=== PATIENT | female | born 1965 | race Caucasian/White ===

== ENCOUNTER → 2018-09-24 | Outpatient (CLI) | payer OTHER ==
--- NOTE | 2018-09-24 15:41 | Diagnostic Imaging Report ---
Indication: Palpable lump in the left breast. No prior mammograms are available for comparison. 2-D and 3-D bilateral diagnostic mammography was performed. BB marker was placed at the area of palpable abnormality in the upper aspect of the left breast retroareolar region. Both breasts are heterogeneously dense, limiting the sensitivity of mammography. No dominant mass or malignant-appearing microcalcifications are seen. Occasional benign calcifications are noted. Axillae are unremarkable. Impression: BI-RADS 0 No mammographic features suspicious for malignancy are identified. Even so, directed sonographic interrogation of the area of palpable abnormality in the left breast is recommended and will be performed today. ACR BI-RADS Category 0: Incomplete. (Needs additional imaging evaluation). Result letter will be mailed to the patient. Note: At least 10% of breast cancer is not imaged by mammography. Dictated by: Dictated on workstation # [id number]
--- NOTE | 2018-09-24 15:46 | Diagnostic Imaging Report ---
Indication: Palpable lump in left breast. Correlation is made with diagnostic mammogram earlier same day. Sonographic interrogation of the area of palpable abnormality in the left breast was performed. Heterogeneous tissue is identified but no discrete mass is detected. No fluid collection. Impression: BI-RADS category 1. No sonographic abnormality is seen. Continued close clinical and self breast exam is recommended to confirm stability of the palpable abnormality. ACR BI-RADS Category 1: Negative. Result letter will be mailed to the patient. Note: At least 10% of breast cancer is not imaged by mammography. Dictated by: Dictated on workstation # [id number]
== END ==
LOC: RAD 12:21
PROVIDERS: ATTEND Nurse Practitioner Primary Care
DX: N63.20 Unspecified lump in the left breast, unspecified quadrant (principal)
CPT/HCPCS: 76642; 77066